=== PATIENT | male | born 1980 | race Caucasian/White ===

== ENCOUNTER 2017-05-08 09:26 | Emergency (ER) | payer SELFPAY ==
--- NOTE | ~2017-05-08 | ER ---
PATIENT'S NAME: RIVER MENDEZ [facility] AGE: 37 Y [address] ROOM: [place] [address] LOCATION: [facility] ADMIT DATE: 05/08/2017 ER/Outpatient Report DISCHARGE DATE: 05/08/2017 FAMILY PHYSICIAN: Abram Beyer MD ATTENDING PHYSICIAN: Tim Patel Admission date and time documented in the medical record. I saw the patient at 0940. CHIEF COMPLAINT: Left anterior chest pain, nonradiating. HISTORY OF PRESENT ILLNESS: This patient is a 37-year-old male, who over the past 2 months has had intermittent episodes of left anterior chest pain. These episodes feel like a tightness in his chest, lasts about 4 to 5 minutes and resolves. He has no accompanied shortness of breath, diaphoresis, nausea, vomiting, or lightheadedness. No weakness. He has no known history of coronary artery disease or lung disease. He has had no fall or trauma or any other injuries. No headache, eyes, ears, nose, throat, neck, or spine pain. No recent coughs, colds, flus, fever, chills, or sweats. No syncope or near syncope. No abdominal pain. No diarrhea. No urinary frequency, urgency, or dysuria. No joint or muscle swelling, redness, or pain. No skin eruptions or rash. He does have a history of depression. No neuro changes, endocrine problems. HOME MEDICATIONS: See attached medication list. ALLERGIES: NONE. SOCIAL HISTORY: Nonsmoker. Nondrinker. He does use daily marijuana. SIGNIFICANT PAST MEDICAL HISTORY: Depression, chronic shoulder pain, marijuana use, seizure history as a child. He outgrew seizures at kindergarten. OPERATIONS: Tonsillectomy, adenoidectomy. REVIEW OF SYSTEMS: All systems reviewed by me are negative with the exception of those discussed in the history of present illness. PATIENT'S NAME: RIVER MENDEZ [facility] AGE: 37 Y [address] ROOM: [place] [address] LOCATION: [facility] ADMIT DATE: 05/08/2017 ER/Outpatient Report DISCHARGE DATE: 05/08/2017 FAMILY PHYSICIAN: Abram Beyer MD ATTENDING PHYSICIAN: Tim Patel PHYSICAL EXAMINATION: VITAL SIGNS: Temperature 98.2 tympanic, pulse 62, respirations 20, blood pressure 152/92, O2 saturation on room air is 97%. HEAD: Normocephalic. EYES, EARS, NOSE, THROAT: Clear. Mucous membranes moist. NECK: No nuchal rigidity. No thyromegaly or cervical adenopathy. No carotid bruits. No tenderness. SPINE: Nontender. No deformity. LUNGS: Clear. Good air flow. No rales, rhonchi, or wheezes. HEART: Regular. Pulses are palpable. No chest wall or ribcage pain to palpation. ABDOMEN: Soft, nondistended, nontender. Active bowel tones. No organomegaly or abnormal masses palpable. No CVA tenderness. EXTREMITIES: No peripheral edema, cyanosis, or deformity. NEUROVASCULAR: Intact. SKIN: Clear. No skin eruptions or rash. DIAGNOSTIC DATA: EKG showed sinus rhythm. No acute ST elevation, ischemic change, or arrhythmia. Chest x-ray showed no acute infiltrate or changes. We will review x-ray with the radiologist. LABORATORY DATA: CMS was normal except for a low anion gap of 9.3, and low calcium of 8.4, magnesium was 2.2. CPK was 166, [id number] cardiac enzymes were normal. White count 7700, 60 segs, 23 lymphs, 7 monos, 8 eos, 1 baso. Hemoglobin is 14.2 with hematocrit 41.4, platelet count is 222,000. PTT is 26, pro-time is 10.4 with an INR 0.99. EMERGENCY DEPARTMENT COURSE: I did give the patient 4 baby aspirin orally in the Emergency Department. I gave the patient no other medications, did no other further testing at this time. IMPRESSION: Chest pain, etiology uncertain, need to rule out myocardial etiology. Most likely cause of etiology of his chest pain is musculoskeletal or gastrointestinal. PLAN: The patient was discharged from the emergency room home. Observation. Activity as tolerated. Continue present home medications and care. Fluids, diet as tolerated. The patient was instructed to talk with his personal physician and get set up or scheduled for a cardiac stress test. Discussion ensued with the patient concerning my findings and recommendations, he PATIENT'S NAME: RIVER MENDEZ [facility] AGE: 37 Y [address] ROOM: [place] [address] LOCATION: [facility] ADMIT DATE: 05/08/2017 ER/Outpatient Report DISCHARGE DATE: 05/08/2017 FAMILY PHYSICIAN: Abram Beyer MD ATTENDING PHYSICIAN: Tim Patel understands. MD BRIAN FERNÁNDEZ/modl /[id number] d: 05/08/172036 t: 05/11/17 1813, OUTPATIENT REPORT
[2017-05-08 10:12] LABS: BASOPHIL # 0.1 K/uL (0.0-0.2); BASOPHIL % 0.9 %; EOSINOPHIL # 0.6 K/uL (0.0-0.5); EOSINOPHIL % 8.2 %; HEMATOCRIT 41.4 % (37.0-53.0); HEMOGLOBIN 14.2 g/dL (12.0-17.0); IMMATURE GRANULOCYTE % 0.5 %; LYMPHOCYTE # 1.8 K/uL (0.8-4.0); LYMPHOCYTE % 23.2 %; MCH 28.5 pg (27.0-34.0); MCHC 34.3 gm/dL (32.0-36.5); MCV 83.1 fl (83.0-98.0); MONOCYTE # 0.6 K/uL (0.0-1.0); MONOCYTE % 7.3 %; NEUTROPHIL # (ANC) 4.6 K/uL (1.4-9.0); NEUTROPHIL % 59.9 %; NRBC % 0 /100WBC (0-0.00); PLATELET COUNT 222 K/uL (150-450); RBC 4.98 M/uL (4.00-6.00); RDW-CV 13.9 % (11.9-14.6); WBC 7.7 K/uL (4.0-11.0)
[2017-05-08 10:17] LABS: INR - (THERAPEUTIC) 0.99 (0.92-1.07); PROTIME 10.4 SECONDS (9.8-11.4); PTT 26 SECONDS (25-32)
[2017-05-08 10:28] LABS: ALBUMIN 3.7 gm/dL (3.5-5.0); ALK PHOS 58 IU/L (33-138); ALT 41 IU/L (12-78); ANION GAP 9.3 (10.0-19.0); AST 23 IU/L (10-40); BLOOD UREA NITROGEN 8 mg/dL (6-24); CALCIUM 8.4 mg/dL (8.5-10.5); CHLORIDE 105 mMol/L (96-110); CO2 30 mMol/L (22-32); CPK 166 IU/L (35-332); MAGNESIUM 2.2 mg/dL (1.8-2.6); POTASSIUM 4.3 mMol/L (3.7-5.1); SODIUM 140 mMol/L (135-145); TOTAL BILIRUBIN 0.5 mg/dL (0.0-1.5); TOTAL PROTEIN 7.5 g/dL (6.0-8.4)
== END 2017-05-08 10:47 | disposition disaster alternative care site (69) ==
LOC: GMED 09:26
PROVIDERS: Emergency Medicine
DX: R07.89 Other chest pain (principal); F32.9 Major depressive disorder, single episode, unspecified; G89.29 Other chronic pain; M25.519 Pain in unspecified shoulder; Z79.899 Other long term (current) drug therapy; Z90.89 Acquired absence of other organs

== ENCOUNTER 2017-06-12 17:45 | Observation (INO) | payer SELFPAY ==
[~2017-06-12] VITALS: Ht 180.3 cm; Wt 118.2 kg
--- NOTE | ~2017-06-12 | ER ---
PATIENT'S NAME: RIVER MENDEZ [facility] AGE: 37 Y [address] ROOM: [place] [address] LOCATION: [facility] ADMIT DATE: 06/12/2017 ER/Outpatient Report DISCHARGE DATE: FAMILY PHYSICIAN: GRZEGORZ CARTWRIGHT MD ATTENDING PHYSICIAN: RUTHY HOPPER Time of Arrival: 1745 hours. Time Seen: 1747 hours. IDENTIFICATION: A 37-year-old male. CHIEF COMPLAINT: Overdose. HISTORY OF PRESENT ILLNESS: The patient is a 37-year-old male, who had a bad day in court today, so approximately 30-45 minutes prior to arrival, took an excess of trazodone 50 mg and Vistaril 50 mg. He has 39 trazodone tablets missing from his bottle per law enforcement. Initially, it was thought to be 30, but they recounted and 39 are missing and 16 Vistaril tablets. He also takes escitalopram and lithium, but states he did not take an excessive dose. Per EMS, he was alert when they arrived. He is more lethargic now that he is transported to the hospital. He complains of just not feeling well in general, but nothing specific. He denies any nausea or vomiting. He has some constant hiccups. He is kind of an ashen color and a little bit diaphoretic. He denies any pain. Again, he has no nausea or vomiting. He denies shortness of breath. He is very lethargic, but will arouse and answer questions. ALLERGIES: NO KNOWN DRUG ALLERGIES. CURRENT MEDICATIONS: 1. Escitalopram 20 mg daily. 2. Hydroxyzine 50 mg q.6 hours p.r.n. anxiety. 3. Buford 300 mg b.i.d. 4. Trazodone 50 mg 1-2 at h.s. MEDICAL PROBLEMS: Depression and anxiety. PRIOR SURGERIES: Denies. PATIENT'S NAME: RIVER MENDEZ [facility] AGE: 37 Y [address] ROOM: [place] [address] LOCATION: [facility] ADMIT DATE: 06/12/2017 ER/Outpatient Report DISCHARGE DATE: FAMILY PHYSICIAN: GRZEGORZ CARTWRIGHT MD ATTENDING PHYSICIAN: RUTHY HOPPER SOCIAL HISTORY: The patient lives here in [place]. He has had some recent trouble with the law enforcement and court charges. Tobacco use, denies. Alcohol use, denies. Illicit drug use, denies. FAMILY HISTORY: Not obtained from the patient. REVIEW OF SYSTEMS: All systems reviewed and negative other than what is noted in the HPI. PHYSICAL EXAMINATION: VITAL SIGNS: Blood pressure 132/73, heart rates in the 60s, O2 saturation 95% on room air. Initially, he did drop down to 90% on room air and was placed on 4 L of O2 per nasal cannula. Weight 117.6 kg, respiratory rate 16, temp 97, Cromwell Coma Score is 13. GENERAL: A 37-year-old male, who appears quite ill at this time, in mild distress. HEENT: Head: Normocephalic. Ears: TMs not visualized. Eyes: Pupils are equal and reactive to light and accommodation. Extraocular movements intact. Conjunctivae clear. Nose: Mucosa pink. No lesions. Mouth: No lesions. Pharynx benign. NECK: Supple. No lymphadenopathy. LUNGS: Clear to auscultation. No rhonchi, wheezes, or rales. HEART: Regular rate and rhythm. ABDOMEN: Soft, nondistended, and nontender. NEUROLOGIC: The patient is lethargic, but arousable. Cromwell Coma Score of 13. No focal deficit. SKIN: Diaphoretic and pale. No rashes. EXTREMITIES: No lower extremity edema. ASSESSMENT AND PLAN: The patient is placed on a monitoring coordinator. He arrives with an IV per EMS pre- hospital. EKG difficult to obtain with his hiccups, but normal sinus rhythm at 66 beats per minute. Nonspecific T-wave changes. QRS 101 milliseconds, QT corrected 366 milliseconds. Labs are all pending to include CBC, CMS, magnesium level, lithium level, UA, urine drug screen, acetaminophen, salicylate, MVA, lactate, ABG, PT, PTT. Poison Control was contacted. Maximum daily dose of trazodone is 600 mg, he has taken greater than 2 times that amount. COMPUTER SYSTEMS CONSULTANT side effects: Seizures, ataxia, bradycardia, hypotension, QT prolongation, and T-wave changes are possibilities. It peaks in 1-2 hours with an elimination half-life of 10 hours. Supportive care recommended. Vistaril, he has taken 8 times the maximum dose. Anticholinergic side effects: COMPUTER SYSTEMS CONSULTANT depression, agitation, seizures. Supportive care: quality assurance monitor. For QRS greater than 120, they recommend serum alkalinization. QT PATIENT'S NAME: RIVER MENDEZ [facility] AGE: 37 Y [address] ROOM: [id number] [place] [id number] LOCATION: [facility] ADMIT DATE: 06/12/2017 ER/Outpatient Report DISCHARGE DATE: FAMILY PHYSICIAN: GRZEGORZ CARTWRIGHT MD ATTENDING PHYSICIAN: RUTHY HOPPER corrected greater than 460. Optimize electrolytes. All other labs are pending at this time. It is shift change and Dr. Abreu will assume care. I have called for an intensive care bed and the hospitalist has been notified. At this time, he is maintaining his airway, but will be monitored closely. CISCO MATAMOROS MD CAR/modl /[id number] d: 06/12/17 2353 t: 06/20/172040, OUTPATIENT REPORT
--- NOTE | ~2017-06-12 | ER ---
PATIENT'S NAME: RIVER MENDEZ [facility] AGE: 37 Y [address] ROOM: [address] [address] LOCATION: [facility] ADMIT DATE: 06/12/2017 ER/Outpatient Report DISCHARGE DATE: FAMILY PHYSICIAN: GRZEGORZ CARTWRIGHT MD ATTENDING PHYSICIAN: RUTHY HOPPER HISTORY OF PRESENT ILLNESS: This is a 37-year-old male, who was signed out to me at change of shift from Dr. Michael, please see her note. Briefly, he presented for overdose of multiple medications after having a bad day in court. Lab work was pending. I reassessed the patient. He appears slightly drowsy, but he is easily arousable. When I checked on him later, he was busy texting on his phone. He has no complaints at this time. He was pending lab work. LABORATORY DATA: CBC shows white count of 12.9, H and H 14.4/42.4, and platelets are 274. Chemistry shows a sodium of 143, potassium 3.4, chloride 109, CO2 26, anion gap 11.4, glucose 127, BUN 14, creatinine 1.3. AST is 24, ALT 36, alkaline phosphatase 72, GFR is 70. Alcohol was less than 0.01. [place] was less than 0.5. Salicylate level was less than 2.8. The initial salicylate level was 6.6. Acetaminophen level was less than 2. EMERGENCY DEPARTMENT COURSE: Dr. Michael previously had discussed this with the hospitalist and the patient will be admitted in guarded condition to the ICU. Vital signs stable at this time. He is maintaining his own airway. IMPRESSION: Drug overdose. MD BRUNO PALACIOS/ulises /[id number] d: 06/13/177 t: 06/13/17 0608, OUTPATIENT REPORT
--- NOTE | ~2017-06-12 | DS ---
PATIENT'S NAME: RIVER MENDEZ [facility] AGE: 37 Y [address] [place]OM: [id number] [address] LOCATION: [facility] ADMIT DATE: 06/12/2017 Discharge Summary DISCHARGE DATE: 06/13/2017 FAMILY PHYSICIAN: Manjit Corado MD ATTENDING PHYSICIAN: Jason Salgado ADMITTING DIAGNOSIS: Suicidal attempt. DISCHARGE DIAGNOSIS: Suicidal attempt with overdose. SECONDARY DIAGNOSES: 1. Obesity. 2. Bipolar disorder. CONSULTATION: Poison Control. HISTORY OF PRESENT ILLNESS: The patient is a 37-year-old male with past medical history of depression and anxiety, chronically managed with [place], hydroxyzine, and trazodone as well as citalopram who presents to the emergency department being brought in by squad approximately 30 minutes after ingesting approximately 30 to 35 tabs of 50 mg trazodone and estimated total dose of 1500 mg of hydroxyzine. Upon arrival, the patient was somewhat somnolent but he is able to awake and answer questions. He stated that today is the worst day of his life. Reportedly, the reason for surrounding a court appearance and a poor outcome. Poison Control was contacted by emergency department and I have discussed with Dr. Michael, the emergency department physician, regarding their recommendation as well as the peak activity level half-life of the 2 agents. Of note, hydroxyzine peak activity is approximately 2 hours with half- life of 20 hours with chief side effects of anticholinergic activity, SCREEN REPAIRER CRUSHER, depression, agitation, seizure. Poison Control recommend supportive care and potentially alkalinization of urine if symptoms warrants. For trazodone, chief concern again was SCREEN REPAIRER CRUSHER, depression, bradycardia, hypertension, QT prolongation. In the emergency, initial evaluation did notify hypokalemia and mild creatinine elevation and magnesium 2.3. Alcohol level was negative. Tylenol was negative. Salicylate level was normal range, and lithium level was less than 0.5. Initial EKG noted QRS acceptable range less than 120 and a QTc of 341. HOSPITAL COURSE: The patient was admitted and was placed in ICU for observation. The patient was placed on telemetry and was monitored for QRS and QTc elongation. QRS and QTc were within normal rate. The patient's somnolence improved. The patient today is somnolent, but awake and alert and follows commands and regrets his situation. The patient is currently willing to go to [facility] for further evaluation. PATIENT'S NAME: RIVER MENDEZ [facility] AGE: 37 Y [address] [place]: [id number] [address] LOCATION: [facility] ADMIT DATE: 06/12/2017 Discharge Summary DISCHARGE DATE: 06/13/2017 FAMILY PHYSICIAN: Manjit Corado MD ATTENDING PHYSICIAN: Jason Salgado CONDITION: Stable. DISPOSITION: [facility]. DISCHARGE MEDICATION: Currently holding his medication and to be evaluated by the psychiatrist at [facility]. FOLLOWUP: To follow up with [facility]. PHYSICAL EXAMINATION: VITAL SIGNS: Stable. HEAD: Normocephalic, atraumatic. EYES: Extraocular muscle intact. CHEST: Clear to auscultation bilaterally. HEART: Regular rate and rhythm. No murmurs, rubs, or gallops. ABDOMEN: Soft, nontender, and nondistended. Bowel sounds present. SCREEN REPAIRER CRUSHER: The patient is alert and awake. Motor and sensory grossly intact. The patient is able to ambulate. Less than 30 minutes was spent on discharge planning. MD SEDA BUCHANAN/ulises /[id number] d: 06/14/17 0551 t: 06/23/17 1559, DISCHARGE SUMMARY
--- NOTE | ~2017-06-12 | HP ---
PATIENT'S NAME: RIVER MENDEZ [facility] AGE: 37 Y [address] [place]: [id number] [address] LOCATION: [facility] ADMIT DATE: 06/12/2017 History & Physical DISCHARGE DATE: FAMILY PHYSICIAN: GRZEGORZ CARTWRIGHT MD ATTENDING PHYSICIAN: RUTHY HOPPER DATE OF SERVICE: 06/12/2017 CHIEF COMPLAINT: Depression, brought into emergency department with overdose. HISTORY OF PRESENT ILLNESS: This is a 37-year-old male with past medical history of depression and anxiety, chronically managed with lithium, hydroxyzine, and trazodone as well as citalopram, who presents to the emergency department being brought in by squad approximately 30 minutes after having ingested approximately 30 to 35 tabs of 50 mg trazodone for an estimated total dose of 1500 mg as well as 16 tabs of hydroxyzine 50 mg for an estimated dose of 800 mg. Upon arrival to the emergency department, the patient is somewhat sedated or drowsy, but is able to awaken to answer questions. He states that today was "the worst day of my life," reportedly for reasons surrounding a court appearance and a poor outcome. Poison Control was contacted by the emergency department and I have discussed with Dr. Michael regarding their recommendations as well as the peak activity levels and half-lives of two agents. Of note, for hydroxyzine, peak activity is an approximately 2 hours with half-life of approximately 20 hours with chief side effects of anticholinergic activity, INSTRUCTIONAL DEVELOPER depression, agitation, and seizures. Poison Control recommended supportive care and potentially alkalinization of urine if symptoms worsen. For trazodone, chief concerns are again INSTRUCTIONAL DEVELOPER depression, bradycardia, hypotension, QT prolongation, and T-wave changes. In the emergency department, initial evaluation notable for mild hypokalemia at 3.4, mild creatinine elevation at 1.3, and magnesium 2.3. Alcohol level was negative. Tylenol level was negative. Salicylate level not significantly elevated at 6.6. Somers level was less than 0.5. Initial EKG noted QRS within acceptable range of less than 120 at 96 and a QTc less than goal of 460 at 341. The patient denies any recent other contributing symptoms including no fevers, chills, nausea, vomiting, chest pain, shortness of breath, abdominal pain, bowel or bladder dysfunction, and leg swelling. PAST MEDICAL HISTORY: Gleaned primarily from chart, notable for depressive disorder as well as chronic shoulder pain and childhood seizure disorder, which has since resolved. PAST SURGICAL HISTORY: PATIENT'S NAME: RIVER MENDEZ [facility] AGE: 37 Y [address] ROOM: [address] [address] LOCATION: [facility] ADMIT DATE: 06/12/2017 History & Physical DISCHARGE DATE: FAMILY PHYSICIAN: GRZEGORZ CARTWRIGHT MD ATTENDING PHYSICIAN: RUTHY HOPPER Tonsillectomy and adenoidectomy. FAMILY HISTORY: Reviewed with the patient and noncontributory to current presentation. SOCIAL HISTORY: Denies alcohol or tobacco use. Though recently endorsed daily marijuana use. ALLERGIES: NO KNOWN DRUG ALLERGIES. MEDICATIONS: 1. Somers 300 mg p.o. b.i.d. 2. Hydroxyzine. 3. Trazodone. 4. Citalopram 20 mg p.o. daily. REVIEW OF SYSTEMS: Review of systems was able to be obtained and is negative aside from noted above in the HPI. PHYSICAL EXAMINATION: VITAL SIGNS: Temperature afebrile, pulse 71, blood pressure 139/82, and saturating 100% on 4 L of oxygen via nasal cannula. GENERAL: The patient is in no acute distress, though drowsy. He does awaken to answer questions and participate in exam. HEENT: Head: Normocephalic and atraumatic. Eyes: Pupils equal, round, and reactive to light. Extraocular muscles intact. No scleral icterus. No conjunctival injection. Nose: Nasal cannula in place. No rhinorrhea appreciated. Ears: External pinna without appreciable lesion. CARDIOVASCULAR: Regular rate and rhythm. No murmurs, rubs, or gallops appreciated. 2+ pulses bilaterally including radial and dorsalis pedis. RESPIRATION: Clear to auscultation bilaterally. Normal respiratory effort. Saturating very well on 4 L oxygen via nasal cannula. ABDOMEN: Soft, nontender, and nondistended. Obese with normoactive bowel sounds. EXTREMITIES: Without edema. SKIN: Without appreciable lesions noted on trunk or exposed extremities. NEUROLOGIC: Alert but drowsy. Does awaken to answer questions and participate in the exam. He is moving all extremities voluntarily. He is oriented x3. LAB AND IMAGING: CBC notable for WBC of 12.9, hemoglobin 14.4, and platelets 274. CMP notable for sodium 143, potassium 3.4, chloride 109, bicarb 26, BUN 14, creatinine PATIENT'S NAME: RIVER MENDEZ [facility] AGE: 37 Y [address] ROOM: [id number] [place] [address] LOCATION: [facility] ADMIT DATE: 06/12/2017 History & Physical DISCHARGE DATE: FAMILY PHYSICIAN: GRZEGORZ CARTWRIGHT MD ATTENDING PHYSICIAN: RUTHY HOPPER 1.3, glucose 127, calcium 8.6, and magnesium is 2.3. LFTs are unremarkable, all within normal range. Alcohol level negative. Tylenol level negative. Salicylate level 6.6, within reference range of 5 to 20. Somers level less than 0.5. EKG is reviewed with QRS of 96 and QTc of 341. ASSESSMENT: 1. Overdose on hydroxyzine and trazodone. 2. Hypoxic respiratory failure. 3. Depression. 4. History of seizure disorder. 5. Hypokalemia. 6. Mild acute kidney injury. PLAN: We will admit the patient to ICU for close monitoring with seizure precautions. We will replace potassium to a goal level of greater than 4 and maintain magnesium greater than 2 per Poison Control Center guidelines. We will monitor on telemetry. Repeat EKGs at any sign of altered intervals on telemetry or other clinical deterioration. We will also monitor for signs of neuroleptic malignant syndrome as well as hypotension, bradycardia, and further INSTRUCTIONAL DEVELOPER depression. If any evidence of the above with worsening symptoms, we will consider alkalinization. Fortunately, as peak activity of both agents is approximately 2 hours and we are approaching this time frame since ingestion, it is likely that we are seeing maximal effects of these drugs currently, but we will be cautious with admission to ICU. With regard to hypoxic respiratory failure, we will actively wean oxygen down to greater than 90% saturations as goal. For MIGUE, we will rehydrate with fluids and recheck in the morning. We will consider Psychiatry evaluation in the morning pending improvement and current status. Full code. DISPOSITION: Anticipate stable medically for discharge in 1 to 2 days, disposition pending likely psychiatric evaluation. Time spent on date of admission in critical care activities with the patient in the emergency room as well as chart review and discussion with ED staff with regard to Poison Control recommendations is 35 minutes. RUTHY HOPPER MD PATIENT'S NAME: RIVER MENDEZ [facility] AGE: 37 Y [address] ROOM: [place] [address] LOCATION: [facility] ADMIT DATE: 06/12/2017 History & Physical DISCHARGE DATE: FAMILY PHYSICIAN: GRZEGORZ CARTWRIGHT MD ATTENDING PHYSICIAN: RUTHY HOPPER/magnol /[id number] D: [id number] T: [id number] HISTORY & PHYSICAL
[2017-06-12 18:02] LABS: BASOPHIL # 0.1 K/uL (0.0-0.2); BASOPHIL % 0.5 %; EOSINOPHIL # 0.4 K/uL (0.0-0.5); EOSINOPHIL % 3.4 %; HEMATOCRIT 42.4 % (37.0-53.0); HEMOGLOBIN 14.4 g/dL (12.0-17.0); IMMATURE GRANULOCYTE % 0.2 %; LYMPHOCYTE # 3.2 K/uL (0.8-4.0); LYMPHOCYTE % 24.5 %; MCH 28.7 pg (27.0-34.0); MCV 84.5 fl (83.0-98.0); MONOCYTE # 0.8 K/uL (0.0-1.0); MONOCYTE % 6.2 %; MPV 8.9 fl (9.4-12.4); NEUTROPHIL # (ANC) 8.4 K/uL (1.4-9.0); NEUTROPHIL % 65.2 %; NRBC % 0 /100WBC (0-0.00); RBC 5.02 M/uL (4.00-6.00); RDW-CV 13.3 % (11.9-14.6); WBC 12.9 K/uL (4.0-11.0)
[2017-06-12 18:04] LABS: PLATELET COUNT 274 K/uL (150-450)
[2017-06-12 18:11] LABS: INR - (THERAPEUTIC) 1.04 (0.92-1.07); PROTIME 10.9 SECONDS (9.8-11.4); PTT 24 SECONDS (25-32)
[2017-06-12 18:25] LABS: ALBUMIN 3.9 gm/dL (3.5-5.0); ALK PHOS 72 IU/L (33-138); ALT 36 IU/L (12-78); ANION GAP 11.4 (10.0-19.0); AST 24 IU/L (10-40); BLOOD UREA NITROGEN 14 mg/dL (6-24); CALCIUM 8.6 mg/dL (8.5-10.5); CHLORIDE 109 mMol/L (96-110); CO2 26 mMol/L (22-32); CREATININE 1.3 mg/dL (0.6-1.3); POTASSIUM 3.4 mMol/L (3.7-5.1); SODIUM 143 mMol/L (135-145); TOTAL PROTEIN 7.8 g/dL (6.0-8.4)
[2017-06-13] MEDS ORDERED: LEXAPRO20 MG PO (04:38)
[2017-06-13] MEDS ORDERED: LITHOBID300 MG PO (04:41)
[2017-06-13] MEDS ORDERED: VISTARIL50 MG PO (04:41)
[2017-06-13] MEDS ORDERED: DESYREL50 MG PO (04:42)
--- NOTE | 2017-06-13 04:53 | NUR ---
Significant Event: PATIENT ADMITTED TO UNIT AT APPROX 1920. PATIENT IS ALERT ET ORIENTED X3, DENIES PAIN. PLEASANT ET COOPERATIVE. DROWSY BUT EASILY AROUSED, ANSWERS QUESTIONS APPROPRIATELY. 1L O2 PATIENT DIPS DOWN TO 89% DURING HEAVY SLEEP. RESPIRATIONS NONLABORED, REMAIN WNL THIS SHIFT. LS CLEAR ET DIMINISHED, NO COUGH. PIV PATENT, NS WITH 20KCL INFUSING. PATIENT ON BEDREST, NPO THIS EVENING. 1:1 WITH STAFF A PRECAUTION, NO UNSAFE BEHAVIORS OBSERVED THIS SHIFT. Follow up: CONTINUE TO MONITOR
[2017-06-13 05:55] LABS: ANION GAP 8.3 (10.0-19.0); CALCIUM 8.2 mg/dL (8.5-10.5); CREATININE 1.3 mg/dL (0.6-1.3); MAGNESIUM 2.3 mg/dL (1.8-2.6); POTASSIUM 4.3 mMol/L (3.7-5.1)
[2017-06-13 07:55] LABS: AMPHETAMINE NEGATIVE (NEGATIVE); BARBITURATE NEGATIVE (NEGATIVE); COCAINE NEGATIVE (NEGATIVE); OPIATES NEGATIVE (NEGATIVE)
--- NOTE | 2017-06-13 12:30 | NUR ---
Pt sent EPC status to [facility] with police escort. IV discontinued with cather intact. Telemetry D/C. No further questions at this time. Parents at bedside, denies any further needs.
--- NOTE | 2017-06-13 13:35 | NUR ---
929 Call to [facility] Access Center, talked with Shira, let her know about Deandre and asked if psych would come over and see him while he was here or if he would be a direct admit. Shira tells me that she thinks he will be a direct admit based on his admitting diagnosis. States is the admitting MD today. Told her I would talk with MD and RNs to see when Deandre would be ready to go, but from what I could see so far, it would most likely be yet this morning or early afternoon. Shira was fine with this. 1000 Talked with , he says that orders are completed and Deandre is clear to go to [facility] today. I came up to the floor, reviewed his chart, did see that we were to notify [facility] when he was cleard for dismissal. Called over to [facility], 237, talked with Nilam, she says she talked with Kenya Baum, who states that when Deandre is cleared to dismiss, he will be an EPC. I let RN Miranda know this. I came into mikaela' room, introduced self and CM role to Deandre and his parents who were at bedside. Explained to them that according to [facility], he was going to be a EPC and they would be coming to pick him up to take him to [facility] upon dismissal. Deandre states," This is total and compelte bullshit, I don't know why the family court justice are even involved they just fuck everything up. I am not going to [facility] when I leave here, my friend was there under an EPC and hung himself and and I will not go there. This is bullshit." Explained to him that because he was an EPC, he didn't really have a choice in the matter, but he could talk with [facility] and [facility] staff about his concerns when he got there and see if he could go any place else. Mom then states that she "is going to call his health care attorney and the distric court office and see if they can talk with the police running this to try to get him to [facility] inpt psych unit instead of [facility] as we don't think that [facility] is a good place for him." Told her that she could do this, but I didn't know if it would help as [facility] usually takes all of [place] EPCs to [facility] as that is where they are contacted to go. I asked Deandre if he had anymore questions for me at this time, he states," No this is all just bullshit and I'm not going to go over there. You can't make me do this, I am a human and I have rights, fuck this." Mom then tells him to calm down and she will "try to see what I can do to get you to [facility], but for now, we will just have to go to [facility] and be compliant with the police. No other questions, needs or concerns. RN to RN report was then called by ANGELO Jean. Shira gave the all clear that had accept. 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 No other questions, needs or concerns. CM to continue to follow and assist. Plan for [facility] at 1230 today via [facility] EPC.
== END 2017-06-13 12:40 ==
LOC: GMED 17:45 → GICU 19:20
PROVIDERS: Family Medicine; Internal Medicine; ADMIT Internal Medicine
DX: T43.212A Poisoning by selective serotonin and norepinephrine reuptake inhibitors, intentional self-harm, initial encounter (principal); T43.592A Poisoning by other antipsychotics and neuroleptics, intentional self-harm, initial encounter; F31.9 Bipolar disorder, unspecified; E87.6 Hypokalemia; N17.9 Acute kidney failure, unspecified; F41.9 Anxiety disorder, unspecified; M25.519 Pain in unspecified shoulder; G89.29 Other chronic pain; Z98.890 Other specified postprocedural states; Z79.899 Other long term (current) drug therapy
CPT/HCPCS: G0378; G0480; J1644; J3480

== ENCOUNTER → 2017-06-12 | Outpatient (CLI) | payer SELFPAY ==
[~2017-06-12] MED LIST: DESYREL50 MG PO; LEXAPRO20 MG PO; LITHOBID300 MG PO; VISTARIL50 MG PO
== END | disposition disaster alternative care site (69) ==
LOC: GAMB 17:22
DX: T43.221A Poisoning by selective serotonin reuptake inhibitors, accidental (unintentional), initial encounter (principal); F32.9 Major depressive disorder, single episode, unspecified; R11.0 Nausea; R00.1 Bradycardia, unspecified; Z79.899 Other long term (current) drug therapy; Z88.8 Allergy status to other drugs, medicaments and biological substances
CPT/HCPCS: A0422; A0425; A0427; J2405; J7030